=== PATIENT | female | born 1970 | race Caucasian/White ===

== ENCOUNTER 2020-02-03 11:08 | Outpatient (CLI) | payer MEDICAID | END 2020-02-03 11:09 | disposition short-term general hospital (02) | LOC: EMS 11:08 | PROVIDERS: ATTEND Surgery | DX: R10.10 Upper abdominal pain, unspecified (principal); R11.2 Nausea with vomiting, unspecified | CPT/HCPCS: A0425; A0427; A0999 ==

== ENCOUNTER 2020-04-17 14:06 | Outpatient (CLI) | payer MEDICAID | END 2020-04-17 14:07 | disposition critical access hospital (66) | LOC: EMS 14:06 | DX: M79.661 Pain in right lower leg (principal); M25.571 Pain in right ankle and joints of right foot | CPT/HCPCS: A0425; A0429; A0999 ==

== ENCOUNTER 2020-04-17 14:38 | Emergency (ER) | payer SELFPAY ==
--- NOTE | 2020-04-17 14:54 | ED Physician Documentation ---
PD HPI LOWER EXT INJURY - Stated complaint Stated Complaint: GLF - Chief complaint Chief Complaint: Ext Problem - History obtained from History obtained from: Patient - History of Present Illness PD HPI LOW EXT INJURY LOCATION: Right, Lower leg Type of injury: Fall Where injury occurred: Home Timing - onset: Last night Timing - duration: Days (1) Timing - details: Abrupt onset, Still present Improved by: Rest, Immobilization Worsened by: Moving, Palpating Associated symptoms: Swelling. No: Weakness, Numbness, Tingling Contributing factors: No: Anticoagulated Similar symptoms before: Has not had sx before Recently seen: Not recently seen - Additional information Additional information: 49-year-old female rolled her right ankle and fell onto the right leg, landing on the spot about 5cm below the patella laterally. She is having a hard time bearing weight but is able to limp. She has not otherwise been ill. Review of Systems Constitutional: denies: Fever Eyes: denies: Decreased vision Ears: denies: Ear pain Nose: denies: Reviewed and negative Throat: denies: Sore throat Cardiac: denies: Chest pain / pressure, Palpitations Respiratory: denies: Dyspnea, Cough GI: denies: Abdominal Pain, Nausea, Vomiting : denies: Dysuria, Frequency Skin: denies: Rash Musculoskeletal: reports: Extremity pain, Joint pain, Extremity swelling, Joint swelling. denies: Neck pain, Back pain Neurologic: denies: Generalized weakness, Focal weakness, Numbness PD PAST MEDICAL HISTORY - Past Medical History GI: Cholelithiasis Psych: Post traumatic stress disorder - Past Surgical History Past Surgical History: Yes General: Cholecystectomy /[employer]: Tubal ligation - Present Medications Home Medications: Ambulatory Orders Medication Instructions Recorded Confirmed Cyclobenzaprine [Flexeril] 10 mg PO TID PRN #10 tablet 10/18/15 Ibuprofen QID PRN 10/18/15 Lidocaine Patch 5% [Lidoderm Patch] 1 each TOP DAILY #5 patch 10/18/15 diphenhydrAMINE [Benadryl] PRN 10/18/15 HYDROcod/ACETAM 5/325 [[place] 5/325] 1 - 2 ea PO Q6H PRN #15 tab 04/17/20 - Allergies Allergies/Adverse Reactions: Allergies Allergy/AdvReac Type Severity Reaction Status Date / Time No Known Drug Allergies Allergy Verified 04/02/15 13:44 - Social History Does the pt smoke?: No Smoking Status: Never smoker Does the pt drink ETOH?: No Does the pt have substance abuse?: No - Immunizations Immunizations are current?: No Immunizations: TDAP >10years/unknown PD ED PE NORMAL - Vitals Vital signs reviewed: Yes (hypertensive ) - General General: Alert and oriented X 3, No acute distress, Well developed/nourished - HEENT HEENT: Atraumatic, PERRL, EOMI - Respiratory Respiratory: No respiratory distress - Derm Derm: Normal color, Warm and dry, No rash - Extremities Extremities: No deformity, Other (There is specific point tenderness to the proximal right fibula about 5cm from the patella. Thers is swelling along the talofibular area of the right ankle. ) - Neuro Neuro: Alert and oriented X 3, filler sifter helper 2-12 intact, No motor deficit, No sensory deficit, Normal speech Eye Opening: Spontaneous Motor: Obeys Commands Verbal: Oriented GCS Score: 15 - Psych Psych: Normal mood, Normal affect Results - Vitals Vitals: Vital Signs - 24 hr 04/17/20 14:44 Temperature 36.1 C L Heart Rate 87 Respiratory 18 Rate Blood Pressure 141/75 H O2 Saturation 100 Oxygen O2 Source Room air - Rads (name of study) tib/fib Radiology: Prelim report reviewed (Impression: 1. Mildly displaced fracture of the proximal fibula and posterior malleolus fracture. 2. Chronic distal fibular fracture which is healed with deformity.), EMP read indepedently, See rad report Procedures - Splint (location) right ankle Splint applied by: Tech Type of splint: Fiberglass, Posterior, Other (knee immobilizer placed as well) Other: Patient tolerated well, No complications, Neurovascular intact, Good alignment, Crutches provided PD MEDICAL DECISION MAKING - ED course Complexity details: reviewed old records, reviewed results, re-evaluated patient, considered differential, d/w patient ED course: 49-year-old female with a fall in her home has a fracture to the proximal fibula on the right side. A nondisplaced fracture and she has an old fracture to the distal fibula. There is some swelling associated with this at the distal end but really all of her pain symptoms are the proximal fibula. She is placed into a knee immobilizer and then into a posterior splint for the distal tibial fracture, onto crutches and a follow up with the orthopedic doctor. Departure - Departure Disposition: 01 Home, Self Care Clinical Impression: Fracture of proximal end of fibula Qualifiers: Encounter type: initial encounter Fracture type: closed Fracture morphology: other fracture Laterality: right Qualified Code(s): S82.831A - Other fracture of upper and lower end of right fibula, initial encounter for closed fracture Fracture of posterior malleolus of right tibia Qualifiers: Encounter type: initial encounter Fracture type: closed Qualified Code(s): S82.391A - Other fracture of lower end of right tibia, initial encounter for closed fracture Condition: Stable Instructions: ED Splint Care Fiberglass, ED Fx Lower Ext Follow-Up: [facility] [Provider Group] Prescriptions: HYDROcod/ACETAM 5/325 [[place] 5/325] 1 - 2 ea PO Q6H PRN #15 tab PRN Reason: Pain
--- NOTE | 2020-04-17 15:33 | XRAY Report ---
PROCEDURE: Tib/Fib RT INDICATIONS: proximal 1/3 contusion pain distal pain TECHNIQUE: 2 views of the tibia and fibula were acquired. COMPARISON: None FINDINGS: Bones: Deformity of the distal fibula compatible with chronic fracture with healed in deformity. Mil dly displaced fracture of the proximal fibula. Minimally displaced posterior malleolar fracture of th e distal tibia. No suspicious bony lesions. Soft tissues: No suspicious soft tissue calcifications or masses. Lateral ankle soft tissue swelling is noted and ligamentous injury cannot be excluded. IMPRESSION: 1. Mildly displaced fracture of the proximal fibula and posterior malleolus fracture. 2. Chronic distal fibular fracture which is healed with deformity. Reviewed by: Ronna Deras MD, PhD on 04/17/2020 3:31 PM PST Approved by: Ronna Deras MD, PhD on 04/17/2020 3:31 PM PST Station ID: [id number]
[2020-04-17] MEDS ORDERED: HYDROcod/ACETAM 5/325 MG TABLET PO STA (15:52)
[2020-04-17 16:25] VITALS: BP 140/80
== END 2020-04-17 16:27 | disposition home or self-care (01) ==
LOC: EDUNIT# → ED 14:38
DX: S82.831A Other fracture of upper and lower end of right fibula, initial encounter for closed fracture (principal); S82.54XA Nondisplaced fracture of medial malleolus of right tibia, initial encounter for closed fracture; W18.30XA Fall on same level, unspecified, initial encounter; Y92.009 Unspecified place in unspecified non-institutional (private) residence as the place of occurrence of the external cause
CPT/HCPCS: 29515; 73590; 99283; 99284; A9270

== ENCOUNTER 2020-06-12 07:19 | Outpatient (CLI) | payer MEDICAID ==
--- NOTE | 2020-06-12 16:07 | XRAY Report ---
PROCEDURE: Knee Standing RT INDICATIONS: RIGHT KNEE NONDISPLACED TRANSVERSE Fx TECHNIQUE: 4 views of the right knee and one view of the left knee. COMPARISON: None. FINDINGS: Bones: No acute fractures or dislocations. No suspicious bony lesions. Mild medial compartment narr owing bilaterally. Mild tricompartmental periarticular osteophyte formation bilaterally. Soft tissues: No knee joint effusions. No suspicious soft tissue calcification. IMPRESSION: Osteoarthritis with medial compartment narrowing. No acute fracture. No osseous lesion. If symptoms a nd/or clinical suspicion for pathology continue, further assessment with repeat plain films, or advan robbie imaging (e.g., CT, MRI, or bone scan) is recommended for further assessment. Reviewed by: Maricruz Kendrick MD on 06/12/2020 4:06 PM PDT Approved by: Maricruz Kendrick MD on 06/12/2020 4:06 PM PDT Station ID: [id number]
== END 2020-06-12 23:59 | disposition home or self-care (01) ==
LOC: DI.N 07:19
PROVIDERS: ATTEND Orthopaedic Surgery
DX: M17.0 Bilateral primary osteoarthritis of knee (principal); S82.424A Nondisplaced transverse fracture of shaft of right fibula, initial encounter for closed fracture